=== PATIENT | female | born 1980 | race Caucasian/White ===

== ENCOUNTER → 2022-01-15 | Outpatient (CLI) | payer OTHER ==
--- NOTE | 2022-01-15 08:16 | RAD ---
EXAMINATION: US ABDOMEN COMPLETE CLINICAL HISTORY: ABD PAIN, N/V. TECHNIQUE: Grayscale sonographic imaging of the abdomen obtained with color Doppler imaging and spect ral Doppler analysis as indicated. COMPARISON: None FINDINGS: Pancreas: Not visualized secondary to prominent overlying bowel gas. Liver: - Echotexture: Normal, homogeneous. - Echogenicity: Increased, suggestive of steatosis. - Surface contour: Smooth - Lesions: None Biliary: No intrahepatic biliary duct dilation. - CBD: 3 mm. - Gallbladder: Normal caliber - Contents: Small nonshadowing echogenicity along the gallbladder wall, poorly visualized on left lateral decubitus views to assess mobility. - Wall: Otherwise unremarkable. - Other: No pericholecystic fluid. Spleen: - Craniocaudal length: 11.7 cm. - Lesions: None Right Kidney: - Renal length: 10.6 cm - Parenchyma: Normal parenchymal echogenicity. Normal parenchymal thickness. - Collecting system: No hydronephrosis. - Calculus: No echogenic, shadowing calculus. - Lesion: None Left Kidney: - Renal length: 10.1 cm - Parenchyma: Normal parenchymal echogenicity. Normal parenchymal thickness. - Collecting system: No hydronephrosis. - Calculus: No echogenic, shadowing calculus. - Lesion: None IVC: Poorly visualized. Abdominal Aorta: Imaged segments patent. Ascites: None. IMPRESSION: Nonspecific small nonshadowing echogenicity along the gallbladder wall, most likely differential incl udes small stone, tumefactive sludge, or polyp. Findings suggestive of hepatic steatosis. Nonvisualized pancreas. Electronically signed by: Braulio Garcia DO (01/15/2022 8:13 AM) [id number]
== END ==
LOC: US 07:36
PROVIDERS: ATTEND Family Medicine
DX: K82.8 Other specified diseases of gallbladder (principal)
CPT/HCPCS: 76700